=== PATIENT | female | born 2000 | race African-American/Black ===

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

== ENCOUNTER 2021-03-22 16:28 | Emergency (ER) | payer SELFPAY ==
[2021-03-22] MEDS ORDERED: Acetaminophen 500 MG TAB ONE (17:04)
[2021-03-22] MEDS ORDERED: Ibuprofen 200 MG TAB ONE (17:04)
[2021-03-22] MEDS ORDERED: Dexamethasone 10 MG/ML VIAL ONE (17:05)
== END 2021-03-22 17:11 | disposition home or self-care (01) ==
LOC: ERS 16:28
DX: J02.9 Acute pharyngitis, unspecified (principal)
CPT/HCPCS: 99283; J1100